=== PATIENT | female | born 1985 | race Two or more races ===

== ENCOUNTER → 2022-06-21 11:04 | Outpatient (CLI) | payer MEDICAID, SELFPAY | PROVIDERS: PCP Internal Medicine; Visit Provider Obstetrics & Gynecology | DX: N92.6 Irregular menstruation, unspecified (principal) | CPT/HCPCS: 36415; 84702 ==

== ENCOUNTER → 2022-07-02 10:30 | Outpatient (CLI) | payer MEDICAID, SELFPAY ==
[2022-07-02 12:13] LABS: Barbiturates Screen,Urine Negative ng/ml (<200)
[2022-07-02 12:14] LABS: Benzodiazepines Screen,Urine Negative ng/ml (<200)
[2022-07-02 12:15] LABS: Amphetamine/Metha Screen,Urine Negative ng/ml (<1000); Methadone Screen,Urine Negative ng/ml (<300)
[2022-07-02 12:16] LABS: Cannabinoid Screen,Urine Negative ng/ml (<50); Cocaine Screen,Urine Negative ng/ml (<300)
[2022-07-02 12:17] LABS: Opiate Screen,Urine Negative ng/ml (<300)
[2022-07-02 12:18] LABS: Phencyclidine Screen,Urine Negative ng/ml (<25)
[2022-07-02 13:30] LABS: HCG,Quantitative 27563 mIU/ml (0-5.42)
[2022-07-03 08:21] LABS: Progesterone 10.4 ng/mL (.)
== END ==
PROVIDERS: PCP Internal Medicine; Visit Provider Obstetrics & Gynecology
DX: Z34.90 Encounter for supervision of normal pregnancy, unspecified, unspecified trimester (principal)
CPT/HCPCS: 36415; 80305; 84144; 84702; 86900; 86901; 87086

== ENCOUNTER → 2022-07-05 10:23 | Outpatient (CLI) | payer MEDICAID, SELFPAY ==
--- NOTE | 2022-07-05 10:30 | US_ITS ---
FINAL REPORT CLINICAL HISTORY: for dates-- early preg with bleeding FINDINGS: PELVIC ULTRASOUND A gestational sac is identified in the uterus. A pole is present measuring 4.36 mm corresponding to an 8 week 0 day gestation. No heartbeat is identified. The right ovary measures 2.4 cm and is unremarkable. The left ovary measures 2.7 cm and is unremarkable. IMPRESSION: Findings most worrisome for failed . Reviewed, Interpreted and Dictated by Velasquez Quintero III, MD Transcribed by Wilman Guillen Authenticated and . [facility]
== END ==
PROVIDERS: PCP Internal Medicine; Visit Provider Obstetrics & Gynecology
DX: Z34.90 Encounter for supervision of normal pregnancy, unspecified, unspecified trimester (principal)
CPT/HCPCS: 76801